=== PATIENT | female | born 1960 | race Caucasian/White ===

== ENCOUNTER 2019-01-15 16:03 | Outpatient (REF) | payer OTHER, SELFPAY ==
--- NOTE | 2019-01-15 15:15 | PAPFT_PTH ---
PATIENT: Maribel Pacheco LOC: [facility] U#:[id number] AGE/SX: 58/F ROOM: RE01/15/[address]: Destiny Barba : 1960 BED: DIS: 01/15/2019 SPEC #: [id number] RECD: 01/15/19 18:00 STATUS: NURA REQ #: [id number] HOSSEIN: 01/15/19 15:[address]: Destiny Barba DEPT: [facility] Cytology RECD BY: Christina Corrales Tissues: 1 - CX/ENDOCX FOR PAP SMEARS Procedures: PAP THIN PREP/UVM Screening HPV DNA PROBE Comments: [id number]
== END 2019-01-15 16:23 ==
LOC: NCHCN 16:03
PROVIDERS: PCP Family Medicine; Visit Provider Family Medicine
DX: Z00.00 Encounter for general adult medical examination without abnormal findings (principal); Z12.4 Encounter for screening for malignant neoplasm of cervix; Z11.51 Encounter for screening for human papillomavirus (HPV)
CPT/HCPCS: 88142; 87624

== ENCOUNTER 2019-02-03 02:03 | Outpatient (CLI) | payer OTHER, SELFPAY ==
--- NOTE | 2019-02-03 13:51 | DI.MAMMO_ITS ---
EXAM: MAMMO SCREENING CLINICAL HISTORY: SCREENING, Z12.31 TECHNIQUE: Mammograms were interpreted according to the usual protocol including computer analysis w [facility] CAD system, tomosynthesis and C-view imaging. COMPARISON: Current examination is compared with previous examinations including September 2013 FINDINGS: Breasts are heterogeneously dense. No dominant mass or clumped microcalcification is identified in e ither breast. Current examination is compared with previous examinations including September 2013 and the re has been no gross interval change in appearance in comparison with the previous studies. IMPRESSION: No specific evidence of malignancy at this time. Routine screening examinations are suggested at year ly intervals in this age group according the ACS/ACR guidelines. Category 1, breast density category C. BI-RADS Cat 1 - Negative Breast Density - Category C - Heterogeneously dense Patient will receive a letter notifying them of these results.
== END 2019-02-03 02:23 ==
PROVIDERS: PCP Family Medicine; Visit Provider Family Medicine
DX: Z12.31 Encounter for screening mammogram for malignant neoplasm of breast (principal)
CPT/HCPCS: 77063; 77067

== ENCOUNTER 2019-02-14 07:40 | Outpatient (CLI) | payer OTHER, SELFPAY ==
[2019-02-14 10:29] LABS: Calculated LDL 165 mg/dL; Cholesterol 236 mg/dL (50-200); Glucose 82 mg/dL (70-100); HDL Cholesterol 54 mg/dL (40-60); Triglyceride 86 mg/dL (30-150)
[2019-02-15 07:05] LABS: Hemoglobin A1C 5.9 % (4.5-6.2)
== END 2019-02-14 08:00 ==
PROVIDERS: PCP Family Medicine; Visit Provider Family Medicine
DX: Z00.00 Encounter for general adult medical examination without abnormal findings (principal); Z13.1 Encounter for screening for diabetes mellitus; Z13.220 Encounter for screening for lipoid disorders
CPT/HCPCS: 36415; 80061; 82947; 83036

== ENCOUNTER 2020-02-21 21:47 | Outpatient (REF) | payer OTHER, SELFPAY ==
[2020-02-21 20:45] LABS: Anion Gap 10.4 mmol/L (3-11); BUN 17 mg/dL (7-18); CO2 26.6 mmol/L (21.0-32.0); CREATININE 0.98 mg/dL (0.55-1.02); Calcium 9.8 mg/dL (8.5-10.1); Chloride 106 mmol/L (98-107); Estimated GFR 57.89 (mL/min/1.73m2); Ferritin 124 ng/mL (8-252); Glucose 85 mg/dL (74-106); Potassium 3.9 mmol/L (3.5-5.1); Sodium 143 mmol/L (136-145)
[2020-02-21 20:57] LABS: Hemoglobin A1C 5.5 % (<5.7)
[2020-02-23 16:06] LABS: HIV-1/2 Ag & Ab Screen Negative (Negative)
[2020-02-28 16:59] LABS: Hepatitis C Ab w Rflx HCV PCR Negative (Negative)
== END 2020-02-21 22:07 ==
LOC: NCHCN 21:47
PROVIDERS: PCP Family Medicine; Visit Provider Family Medicine
DX: R73.03 Prediabetes (principal); Z87.19 Personal history of other diseases of the digestive system; N89.8 Other specified noninflammatory disorders of vagina; Z00.00 Encounter for general adult medical examination without abnormal findings
CPT/HCPCS: 80048; 86803; 87389; 82728; 83036

== ENCOUNTER 2020-03-15 00:18 | Outpatient (CLI) | payer OTHER, SELFPAY ==
--- NOTE | 2020-03-15 | DI.US_ITS ---
EXAM: US PELVIS TRANSVAGINAL CLINICAL HISTORY: PELVIC PAIN,R10.2,VAGINAL DISCHARGE,N89.8. TECHNIQUE: Transabdominal and transvaginal pelvic ultrasound was performed using standard protocol. COMPARISON: No exams were available for comparison FINDINGS: KIDNEYS: Kidneys are symmetric in size. No evidence of renal calculi. No evidence of hydronephrosis. No renal mass or cyst identified. UTERUS: Position: Anteverted. Size: 6.0 long by 2.7 AP by 3.7 transverse cm Endometrium: 0.2 cm. Normal for patient's menstrual status. Myometrium: Unremarkable. Cervix: Unremarkable. OVARIES: Right: 2.3 x 1.3 x 1.3 cm Cyst or mass: None. Left: 2.0 x 1.1 x 1.4 cm Cyst or mass: None. DOPPLER: Color: Symmetric and uniform flow to both ovaries. No hyperemia. CUL-DE-SAC: Free fluid: None. Other: None. IMPRESSION: 1. Normal sonographic appearance of the kidneys. 2. Normal-appearing uterus with endometrial stripe within normal limits. 3. Unremarkable bilateral ovaries. DATA REPOSITORY:
== END 2020-03-15 00:38 ==
PROVIDERS: PCP Family Medicine; Visit Provider Family Medicine
DX: R10.2 Pelvic and perineal pain (principal); N89.8 Other specified noninflammatory disorders of vagina
CPT/HCPCS: 76830; 76856

== ENCOUNTER 2020-03-16 00:41 | Outpatient (CLI) | payer OTHER, SELFPAY ==
--- NOTE | 2020-03-16 12:22 | DI.US_ITS ---
APPROVED REPORT EXAM: Comprehensive 2D, Doppler, and color-flow Echocardiogram Patient Location: Out-Patient Prize Fighter: Kusum Toth RDCS (AE) Indications: Family h/o congenital heart disease-bicuspid aortic valve Other Information Study Quality: Adequate Conclusion Left Ventricle : The left ventricle is normal size. The left ventricular systolic function is normal. The left ventricular ejection fraction is within the normal range. There is normal left ventricular wall thickness. There is normal LV segmental wall motion. The left ventricular diastolic function is normal. LVEF is 60%. Right Ventricle : The right ventricle is normal size. The right ventricular systolic function is norm al. The RVSP is 15.3mmHg. Atria : The left atrium size is normal. The right atrium size is normal. Aortic Valve : The aortic valve is normal in structure. Aortic valve appears trileaflet. No aortic re gurgitation is present. There is no aortic valvular stenosis. Great Vessels : The aortic root is normal in size. The ascending aorta is normal in size. Aortic arch is normal in caliber. IVC is normal in size and collapses >50% with inspiration. There is no prior study available for comparison. Wall motion Left Ventricle The left ventricle is normal size. The left ventricular systolic function is normal. The left ventric ular ejection fraction is within the normal range. There is normal left ventricular wall thickness. T here is normal LV segmental wall motion. The left ventricular diastolic function is normal. There is no ventricular septal defect visualized. LVEF is 60%. Right Ventricle The right ventricle is normal size. The right ventricular systolic function is normal. The RVSP is 15 .3mmHg. Atria The left atrium size is normal. The right atrium size is normal. The interatrial septum is intact wit h no evidence for an atrial septal defect. Aortic Valve The aortic valve is normal in structure. Aortic valve appears trileaflet. There is no aortic valvular stenosis. No aortic regurgitation is present. Mitral Valve The mitral valve is normal in structure. No evidence of mitral valve stenosis. Trace to mild mitral r egurgitation. Tricuspid Valve The tricuspid valve is normal in structure. There is no tricuspid valve stenosis. Trace tricuspid reg urgitation. Pulmonic Valve The pulmonary valve is normal in structure. There is no pulmonic valvular stenosis. Trace pulmonic re gurgitation. Great Vessels The aortic root is normal in size. The ascending aorta is normal in size. Aortic arch is normal in ca liber. IVC is normal in size and collapses >50% with inspiration. Pericardium There is no pericardial effusion. 2D Dimensions IVSD d PLAX 0.89 cm F: 0.6-1.0 LV Vol A2C d MOD 67.5 mL LVPW d PLAX 0.90 cm F: 0.6 - 1.0 LV Vol A4C d MOD 94.8 mL LVID d PLAX 3.80 cm F: 3.8 - 5.2 LA vol/ BSA A2C s A-L 25.1 mL/m2 LVDs 2.55 cm F: 2.2 - 3.5 LA vol/ BSA A4C s A-L 21.4 mL/m2 Ao Root d 2.88 cm F: 2.7 - 3.3 LA Vol/ BSA Biplane s A-L 24.8 mL/m2 RA Area A4C 14.50 cm2 LA Area A4C s MOD 15.69 cm2 RA Vol/ BSA A4C s A-L 20.4 mL/m2 LA Area A2C s MOD 15.89 cm2 Ao Asc Diam d 3.06 cm F: 2.3 - 3.1 LV EF A4C MOD 60.5 % LV EF Teichholz 60.9 % LV EF A2C MOD 58.2 % LVEF ([facility]) 61.00 % F: 54 - 74 LV EF Biplane MOD 61.0 % LV Volume 65.42 mL F: 46 - 106 SV 51.25 mL LV Volume Index 36.54 mL/m2 F: 29 - 61 SV Index 28.56 mL/m2 LV Vol Biplane MOD 84.0 mL FS 32.00 % M-Mode TAPSE 2.68 cm (M/F) >1.7 LV Diastology MV E' medial 0.083 (>0.07 m/s) E/A Ratio 1.0 LV E/e MED 6.70 (<14) MV E Vmax 0.56 (0.4-1.3 m/s) MV E' lateral 0.132 (>0.1 m/s) MV A Vmax 0.55 (0.4-1.3 m/s) LV E/e LAT 4.20 (<14) MV E/A Ratio 0.95 MV E/E' medial 6.72 MV E/E' lateral 4.23 Aortic Valve LVOT Area 3.32 cm2 AoV Area Vmax 3.00 cm2 LVOT Vmax 0.90 m/s AoV Area/ BSA (Vmax) 1.67 cm2/m2 LVOT Mean David. 0.55 m/s HAILEY Mean David. 2.61 cm2 LVOT Peak Grad 3.2 mmHg HAILEY Mean David. Index 1.46 cm2/m2 LVOT Mean Grad 1.4 mmHg LVOT VTI 0.195 m LVOT Diam s 2.05 cm AoV Vmax 0.99 m/s Velocity Ratio 0.90 AoV Mean David. 0.70 m/s AoV Peak Grad 4.0 mmHg LVOT SV 64.77 mL AoV Mean Grad 2.1 mmHg AoV VTI 0.214 m AoV Area VTI 3.03 cm2 AoV Area/ BSA (VTI) 1.69 cm/m2 Mitral Valve MV DT 188 (160-240 msec) MV PHT 54 msec MV Area PHT 4.04 cm2 MV VTI 0.179 m MV VTI Annulus 0.177 m MV Area VTI 3.59 (4.0-6.0 cm2) Pulmonary Valve PV Vmax 0.96 (0.5-1.5 m/s) RVOT Peak Gr. 1.79 mmHg PV Peak Grad 3.7 mmHg RVOT Mean Gr. 0.90 mmHg PV Mean Grad 1.9 mmHg RVOT VTI 0.165 m PV VTI 0.209 m RVOT Vmax 0.67 m/s Tricuspid Valve TR Peak Grad 12.2 mmHg TR Vmax 1.75 m/s RA Pressure 3.00 mmHg RVSP (TR) 15.3 mmHg
== END 2020-03-16 01:01 ==
PROVIDERS: PCP Family Medicine; Visit Provider Family Medicine
DX: Z82.49 Family history of ischemic heart disease and other diseases of the circulatory system (principal); Z82.79 Family history of other congenital malformations, deformations and chromosomal abnormalities
CPT/HCPCS: 93306

== ENCOUNTER 2020-11-26 07:19 | Outpatient (REF) | payer OTHER, SELFPAY ==
[2020-11-28 13:46] LABS: Helicobacter pylori Ag, Feces Negative (Negative)
== END 2020-11-26 07:20 | disposition home or self-care (01) ==
LOC: LBN 07:19
PROVIDERS: PCP Family Medicine; Visit Provider Family Medicine
DX: R19.6 Halitosis (principal); Z87.19 Personal history of other diseases of the digestive system
CPT/HCPCS: 87338

== ENCOUNTER 2021-02-27 00:45 | Outpatient (CLI) | payer OTHER, SELFPAY ==
--- NOTE | 2021-02-27 12:24 | DI.MAMMO_ITS ---
Exam(s) MAMMO SCREENING EXAM: MAMMO SCREENING CLINICAL HISTORY: SCREENING, Z12.31 TECHNIQUE: Bilateral full field digital CC and MLO mammographic images were obtained with 3D tomosyn thesis and utilizing computer aided detection (CAD). COMPARISON: Available for comparison. FINDINGS: Masses/Architectural Distortion: None seen. Microcalcifications: No suspicious pleomorphic-type are seen. Skin Thickening/Nipple Retraction: None. IMPRESSION: 1. No significant interval change with no specific features of malignancy noted. 2. Unless there is more urgent need, screening mammography is recommended, as per [employer] [employer] guidelines. BI-RADS Category 1 - Negative Breast Density - Category C - Heterogeneously dense Breast density category C or D implies that the patient has dense breast tissue. Dense breast tissue is very common and is not abnormal but dense breast tissue can make it harder to find cancer on a ma mmogram. Also, dense breast tissue may increase their breast cancer risk. This information about the result of the mammogram report was provided to the patient to raise their awareness. Use this report when you speak with the patient about their risks for breast cancer, which includes their family hist ory. At that time, you may recommend for more screening tests (Ultrasound or MRI) as they might be us eful based on their risk. A negative radiographic report should not delay biopsy if a dominant or clinically suspicious mass is present. Up to ten percent of cancers are not identified on mammography. A negative report may reinforce clinical impression. Adenosis and dense breasts may obscure an underlying neoplasm. False positive reports average 6 to 10%. Patient will receive a letter notifying them of these results.
== END 2021-02-27 01:05 ==
PROVIDERS: PCP Family Medicine; Visit Provider Family Medicine
DX: Z12.31 Encounter for screening mammogram for malignant neoplasm of breast (principal); R92.8 Other abnormal and inconclusive findings on diagnostic imaging of breast
CPT/HCPCS: 77063; 77067

== ENCOUNTER 2024-10-25 12:47 | Outpatient (REF) | payer MEDICARE, SELFPAY ==
[2024-10-25 21:45] LABS: ESR 6 mm/hr (0-30)
[2024-10-25 22:04] LABS: Anion Gap 9.2 mmol/L (3-11); BUN 20 mg/dL (7-18); CO2 27.8 mmol/L (21.0-32.0); Calcium 10.1 mg/dL (8.5-10.1); Calculated LDL 175 mg/dL (<100); Chloride 105 mmol/L (98-107); Cholesterol 261 mg/dL (<200); Estimated GFR 81.72 (mL/min/1.73m2); Glucose 98 mg/dL (74-106); HDL Cholesterol 56 mg/dL (>or=50); Potassium 4.2 mmol/L (3.5-5.1); Sodium 142 mmol/L (136-145); Triglyceride 150 mg/dL (<150)
[2024-10-25 22:41] LABS: C-Reactive Protein < 0.50 mg/dL (<or=0.5)
== END 2024-10-25 12:48 | disposition home or self-care (01) ==
LOC: NCHCN 12:47
PROVIDERS: PCP Family Medicine; Visit Provider Family Medicine
DX: Z13.220 Encounter for screening for lipoid disorders (principal); I10 Essential (primary) hypertension; M25.531 Pain in right wrist; M25.532 Pain in left wrist
CPT/HCPCS: 80048; 80061; 85652; 86200; 86140